=== PATIENT | female | born 1965 | race Caucasian/White ===

== ENCOUNTER 2019-09-23 10:30 | Day surgery (SDC) | payer BC, OTHER ==
[2019-09-22 17:34] VITALS: BMI 48.8
[2019-09-23] MEDS ORDERED: METHYLENE BLUE 1% 10 MG/1 ML VIAL NR ONE (14:11)
[2019-09-23] MEDS ORDERED: ONDANSETRON 4 MG/2 ML VIAL IVPUSH PRN (15:14)
[2019-09-23] MEDS ORDERED: LACTATED RINGERS SOLUTION 1,000 ML IV SCH (15:15)
[2019-09-23] MEDS ORDERED: IBUPROFEN 800 MG/8 ML IJ IVPB PRN (15:16)
--- NOTE | 2019-09-23 17:00 | OP ---
DATE OF OPERATION: 09/23/2019 PREOPERATIVE DIAGNOSIS: Right breast cancer. POSTOPERATIVE DIAGNOSIS: Right breast cancer. PROCEDURE: Right breast ultrasound-guided wire localized lumpectomy and sentinel node biopsy. SURGEON: Brandi Lee MD ANESTHESIA: General. ESTIMATED BLOOD LOSS: Minimal. COMPLICATIONS: None. This is a sterile procedure. INDICATION FOR PROCEDURE: The patient had a routine screening mammography that noted a density in the upper outer right breast. This was confirmed on ultrasound. I did an ultrasound-guided core biopsy of this mass in the right breast 9:30 location 10 cm from the nipple. Pathology shows an invasive ductal carcinoma, ER/IA positive, HER2/asiya negative. My recommendation was lumpectomy with central node biopsy. The procedure was discussed with all of the questions answered. PROCEDURE IN DETAIL: Patient was brought to [facility] in [place]. Taken down to nuclear medicine where I injected technetium sulfur colloid as an intradermal injection in the right breast 10 o'clock areolar border. She was then brought into the operating room, and after induction of general anesthesia and IV antibiotics, an intraoperative ultrasound was performed, and the lesion in the right breast 9:30 location 10 cm from the nipple was localized with a Kopans wire by me under ultrasound guidance. Once this was completed, 2-1/2 mL of Methylene blue diluted with 2-1/2 mL of injectable saline was then injected into the left subaerolar plexus. The breast was then massaged for 5 minutes. Next, the right breast and axilla were prepped and draped in the usual sterile fashion. A 4-cm incision was made in the right axilla, carried down to the clavipectoral fascia to identify a sentinel lymph node number 1 that was blue and hot. There was no other blue dye radioactivity within the right axilla; however, there were 2 lymph nodes that felt firm; therefore, I took them separately, but they also had no counts or blue dye within them. This was sent as right axillary nonsentinel nodes. There was no other blue dye radioactivity or pathologic feeling lymph nodes in the right axilla; therefore, once hemostasis was assured, the right breast lumpectomy was performed. A radial incision was made in the upper outer part of the right breast, and a wire was used as a guide to get down to the area. This was excised en bloc and tagged with a long stitch lateral, short stitch superior. Grossly I felt I was close superiorly; therefore, I took a new superior margin with stitch at the old margin. These specimens were sent to Pathology for permanent section. Hemostasis was assured with electrocautery. The parenchyma was approximated with interrupted 2-0 Vicryl, skin approximated with interrupted 3-0 Vicryl, running 4-0 Prolene. A sterile dressing was Steri-Strips and Tegaderm was applied. The axillary incision was also closed in a routine fashion with interrupted 3-0 Vicryl, running 4-0 Prolene. A sterile dressing with Steri-Strips, Tegaderm was applied as well as a mammary binder. She tolerated the procedure well, was extubated on the operating room table, taken to recovery in good condition. Antonio [id number]
[2019-09-23 19:07] VITALS: BP 124/57; PULSE 62; TEMP 98.3
--- NOTE | 2019-09-30 13:39 | PATH ---
Surgical Pathology Report Patient Name: CARL COTTO [facility]. Rec. #: [id number] /Age/Gender: 1965 (Age: 53) / F Account: [id number] Location: [facility] SURGICAL Taken: 09/23/2019 Received: 09/26/2019 Reported: 09/30/2019 Physicians: Brandi Lee M.D. Specimen(s) Received A: RIGHT AXILLARY SENTINEL #1 BLUE AND HOT B: RIGHT AXILLARY NON-SENTINEL C: RIGHT LUMPECTOMY D: RIGHT BREAST NEW SUPERIOR MARGIN Clinical History Right breast cancer Final Diagnosis A. AXILLARY SENTINEL LYMPH NODE #1, RIGHT, BLUE AND HOT, EXCISION: ONE LYMPH NODE NEGATIVE FOR CARCINOMA (0/1). B. AXILLARY NON-SENTINEL LYMPH NODE, RIGHT, EXCISION: TWO LYMPH NODES NEGATIVE FOR CARCINOMA (0/2). C. BREAST, RIGHT, LUMPECTOMY: INVASIVE DUCTAL CARCINOMA, MODERATELY DIFFERENTIATED (TUBULE SCORE: 2/3, NUCLEAR GRADE: 3/3, MITOTIC SCORE: 1/3; TOTAL PETER SCORE: 6/9). INVASIVE CARCINOMA MEASURES 1.3 CM IN GREATEST MICROSCOPIC DIMENSION. DUCTAL CARCINOMA IN SITU (DCIS), CRIBRIFORM AND MICROPAPILLARY TYPES, INTERMEDIATE TO HIGH NUCLEAR GRADE, WITH MODERATE NECROSIS. NO LYMPHOVASCULAR INVASION IDENTIFIED. SURGICAL MARGINS ARE UNINVOLVED BY INVASIVE AND IN SITU CARCINOMA; CARCINOMA IS 7 MM FROM CLOSEST SUPERIOR MARGIN. SEE SPECIMEN D FOR FINAL SUPERIOR MARGIN. PATHOLOGIC STAGE (pTNM): pT1c pN0(sn). SEE INVASIVE CARCINOMA CASE SUMMARY BELOW. D. BREAST, RIGHT, NEW SUPERIOR MARGIN, EXCISION: BENIGN BREAST PARENCHYMA Comments Breast Invasive Carcinoma: Surgical Pathology Case Summary (Based on AJCC TNM 8 th edition) Procedure _X_ Excision (less than total mastectomy) Specimen Laterality _X_ Right Tumor Size _X_ Greatest dimension of largest invasive focus >1 mm (millimeters): 13 mm Histologic Type _X_ Invasive carcinoma of no special type (ductal, not otherwise specified) Histologic Grade (Peter Histologic Score) Glandular (Acinar)/Tubular Differentiation _X_ Score 2 (10% to 75% of tumor area forming glandular/tubular structures) Nuclear Pleomorphism _X_ Score 3 Mitotic Rate _X_ Score 1 Overall Grade _X_ Grade 2 (scores of 6 or 7) Tumor Focality _X_ Single focus of invasive carcinoma Ductal Carcinoma In Situ (DCIS) _X_ DCIS is present in specimen _X_ Negative for extensive intraductal component (EIC) Margins Invasive Carcinoma Margins _X_ Uninvolved by invasive carcinoma Distance from closest margin (millimeters): 7 mm in lumpectomy (C), negative on new superior margin (D) Closest margin: Superior DCIS Margins _X_ Uninvolved by DCIS Distance from closest margin (millimeters): 7 mm in lumpectomy(C), negative on new superior margin (D) Closest margin: Superior Regional Lymph Nodes _X_ Uninvolved by tumor cells Number of Lymph Nodes Examined: 3 Number of [place] Nodes Examined: 1 Treatment Effect _X_ No known presurgical therapy Lymphovascular Invasion _X_ Not identified Pathologic Stage Classification (pTNM, AJCC 8th Edition) Primary Tumor (Invasive Carcinoma) (pT) _X_ pT1c: Tumor >10 mm but =20 mm in greatest dimension Regional Lymph Nodes (pN) Category (pN) _X_ pN0: No regional lymph node metastasis identified or ITCs only Biomarker Studies Results of ER and ID studies performed on prior biopsy ([id number]) at [facility] are as follows: ER (clone [id number] mouse monoclonal antibody by [employer]): 100% nuclear staining with strong intensity (Positive). ID (clone16 mouse monoclonal antibody by [employer]): ~25% nuclear staining with moderate to strong intensity (Positive). Results of Her2 (IHC and FISH) & Ki-67 studies performed on performed on prior biopsy ([id number]) at [place], [place] ([id number]) are as follows: Her2 IHC (EP3 from [employer], formerly known as [id number], using Gonzalez Polymer Refine detection kit2): 2+(Equivocal). Ki-67: ~20% (Intermediate proliferative index). HER2 analysis by FISH performed on prior biopsy ([id number]) at [place], [place] Interpretation: NEGATIVE Her2: 3.3 CEP17: 2.6 Ratio: 1.3 Electronically Signed Leah Glynn M.D. Gross Description A. Received in formalin labeled "right axillary sentinel lymph node #1 blue and hot," is a 1.1 x 0.4 x 0.4 cm lymph node with attached fat. The specimen is bisected and entirely submitted in one cassette. B. Received in formalin labeled "right axillary non-sentinel lymph node," are 2 lymph nodes with attached fat measuring 1.1 x 0.9 x 0.6 cm and 1.3 x 0.9 x 0.6 cm. The lymph nodes are bisected and entirely submitted in 2 cassettes. C. Received in formalin, labeled "right lumpectomy," is a 6.8 x 4.5 x 3.5 cm. correa-yellow, irregular, portion of fibroadipose tissue with a needle localization wire present. There is a short suture marking the superior aspect and a long suture marking the lateral aspect, per the surgeon. There is no skin or nipple present. The specimen is inked as follows: Superior blue; inferior green; anterior and lateral red; medial yellow; deep black. The specimen is serially sectioned from lateral to medial. Sectioning reveals a 1.1 x 1.0 x 0.7 cm correa, indurated, well defined mass. The mass is 0.7 cm from the superior margin, 0.8 cm from the inferior margin, 1.0 cm from the deep margin and 1.2 cm from the anterior margin. The remaining margins appear clear of the mass. Picture Framer sections are submitted in 7 cassettes as follows: 1-full face section of mass with superior margin; 2-additional mass with superior margin; 3-mass with inferior margin 4-deep margin; 5-anterior margin; 6-medial margin; 7-lateral margin. Total formalin fixation time: Approximately 96 hours D. Received in formalin labeled "right breast new superior margin," is a 4.6 x 2.8 x 0.8 cm portion of fibroadipose tissue with a suture marking the old margin, per the surgeon. The new margin is inked black and the specimen is serially sectioned. The specimen is entirely and sequentially submitted in 7 cassettes. 09/27/2019 [facility]09/27/2019
== END 2019-09-23 18:20 | disposition home or self-care (01) ==
LOC: JASU-SURG 10:30
PROVIDERS: ATTEND Surgery
PROC: 0HBT0ZZ Excision of Right Breast, Open Approach (ICD-10-PCS; principal; 2019-09-23 13:00)
DX: C50.411 Malignant neoplasm of upper-outer quadrant of right female breast (principal); I10 Essential (primary) hypertension; I25.10 Atherosclerotic heart disease of native coronary artery without angina pectoris; E11.9 Type 2 diabetes mellitus without complications; E78.5 Hyperlipidemia, unspecified
CPT/HCPCS: 78195-TC; 82962; 88307-TC; 94760; A9541

== ENCOUNTER 2020-10-23 04:32 | Day surgery (SDC) | payer BC, OTHER ==
[2020-10-19 11:07] VITALS: BMI 51.7
[2020-10-23] MEDS ORDERED: PROPOFOL 20 ML ONE ×2 (08:54)
[2020-10-23] MEDS ORDERED: MIDAZOLAM HCL 2 MG/2 ML SINGLE DOSE VIAL ONE ×2 (08:54)
[2020-10-23] MEDS ORDERED: PROMETHAZINE HCL 25 MG/1 ML VIAL IVPB PRN (10:03)
[2020-10-23] MEDS ORDERED: oxyCODONE HCL 5 MG TABLET PO PRN (10:03)
[2020-10-23] MEDS ORDERED: ONDANSETRON 4 MG/2 ML VIAL IVPUSH PRN (10:03)
[2020-10-23] MEDS ORDERED: ACETAMINOPHEN INJECTION 100 ML IVPB ONE (10:05)
[2020-10-23] MEDS ORDERED: ONDANSETRON 4 MG/2 ML VIAL ONE (10:05)
[2020-10-23] MEDS ORDERED: ACETAMINOPHEN 1000 MG/100 ML VIAL (NON FORMULARY) IVPB ONE (10:06)
[2020-10-23 14:54] VITALS: TEMP 98
[2020-10-23 14:56] VITALS: BP 120/70
[2020-10-23 15:00] VITALS: PULSE 60
== END 2020-10-23 15:00 | disposition home or self-care (01) ==
LOC: JASU-SURG 04:32
PROVIDERS: ATTEND Obstetrics & Gynecology
PROC: 0UDB8ZX Extraction of Endometrium, Via Natural or Artificial Opening Endoscopic, Diagnostic (ICD-10-PCS; principal; 2020-10-23 09:00)
DX: N88.2 Stricture and stenosis of cervix uteri (principal); N95.0 Postmenopausal bleeding; R93.89 Abnormal findings on diagnostic imaging of other specified body structures; I10 Essential (primary) hypertension; I25.10 Atherosclerotic heart disease of native coronary artery without angina pectoris; E11.9 Type 2 diabetes mellitus without complications; E03.9 Hypothyroidism, unspecified
CPT/HCPCS: 82962; 86850; 86900; 86901; 94760; J0131

== ENCOUNTER 2022-01-24 05:40 | Day surgery (SDC) | payer BC, OTHER ==
[2022-01-22 07:20] VITALS: BMI 51.7
[2022-01-24 09:15] VITALS: BP 117/75; PULSE 76; TEMP 98.5
== END 2022-01-24 09:33 | disposition home or self-care (01) ==
LOC: JASU-ENDO 05:40
PROVIDERS: ATTEND Internal Medicine Gastroenterology
PROC: 0DBP8ZX Excision of Rectum, Via Natural or Artificial Opening Endoscopic, Diagnostic (ICD-10-PCS; 2022-01-24)
PROC: 0DBL8ZX Excision of Transverse Colon, Via Natural or Artificial Opening Endoscopic, Diagnostic (ICD-10-PCS; principal; 2022-01-24 08:00)
DX: Z12.11 Encounter for screening for malignant neoplasm of colon (principal); D12.3 Benign neoplasm of transverse colon; D12.8 Benign neoplasm of rectum; K57.30 Diverticulosis of large intestine without perforation or abscess without bleeding; I10 Essential (primary) hypertension; E11.9 Type 2 diabetes mellitus without complications
CPT/HCPCS: 88305-TC